=== PATIENT | male | born 1970 | race African-American/Black ===

== ENCOUNTER 2019-09-22 19:44 | Emergency (ER) | payer OTHER, SELFPAY ==
--- NOTE | ~2019-09-22 | XR_ITS ---
EXAMINATION: XR knee RT min 4V DATE: 09/22/2019 20:02 INDICATION: Medial right knee pain and swelling post injury with palpable pop TECHNIQUE: Anteroposterior, 2 oblique and crosstable lateral views of the right knee were obtained COMPARISON: None. FINDINGS: Alignment is normal. No fracture. Spaces appear normal. No joint effusion/layering lipohemarthrosis. Patellar soft tissue swelling. IMPRESSION: 1. No right knee joint effusion or osseous abnormality. Reviewed, dictated and finalized at location A. ET ANALYST
[2019-09-22 19:45] VITALS: BP 101/68; PULSE 60; RESP 22; TEMP 36.8; O2SAT 100
--- NOTE | 2019-09-22 19:53 | PC.NURSE ---
pt to xray via w/c
--- NOTE | 2019-09-22 20:11 | ED.LOWEXIN ---
HPI - Extremity Injury (Lower) General Chief Complaint: Extremity Injury, Lower Stated Complaint: R knee pain Time Seen by Provider: 09/22/19 19:49 Source: patient Mode of arrival: ambulatory Limitations: no limitations History of Present Illness HPI Narrative: A 49 y/o male pt presents to the ED, with c/o rt knee pain since Saturday afternoon (5 days ago). Pt states he was kneeling on his rt knee when he felt a pop. He has since been experiencing pain above and medial to his rt knee joint. Pt states the pain is worse when bending his knee. Pt denies any numbness or tingling to extremities and denies a fever. He states that applied ice with no relief. MD complaint: knee injury (rt) Onset (ago): day(s) (5) Injury: Right: knee Exacerbating factors: movement (bending rt knee) Associated symptoms: snap/pop sensation and other (pain when bending) Treatments prior to arrival: cold therapy Related Data Allergies Allergy/AdvReac Type Severity Reaction Status Date / Time No Known Allergies Allergy Unverified 11/15/15 23:06 Review of Systems Review of Systems: All systems reviewed & are unremarkable except as noted in HPI and below Constitutional: Constitutional: Denies fever(s) Musculoskeletal: Musculoskeletal: Reports arthralgias (rt knee) and Reports limited range of motion (increased pain when bending rt knee) Neurologic: Denies numbness and Denies tingling PMFSH Past Medical History Medical History (Updated 09/22/19 @ 20:27 by Jorge A Felton DO) No significant past medical history Surgical History Surgical History (Updated 09/22/19 @ 20:22 by Angelita DuttonJumio) No significant past surgical history Social History Social History (Updated 09/22/19 @ 20:23 by Angelita DuttonJumio) Smoking status: Smoker, status unknown Occupation/Education: other Additional occupation/education comments: self-employed Exam Narrative: Exam Narrative: APPEARANCE: No acute distress, nontoxic, resting in bed Eyes: EOMI HEENT: Normocephalic, atraumatic, RESPIRATORY: No respiratory distress MUSCULOSKELETAl: Tender to palpation over right medial knee, no tenderness of the anterior lateral posterior knee, pain with flexion greater than 45 degrees, no tenderness of the right ankle or hip, dorsalis pedis pulse 2+, neurovascular intact NEURO: Awake and alert. Following commands, speech normal, no focal deficits SKIN:: Warm, dry. Normal Color no rash or lesions xtremity injury Course Course Emergency Course: Discussed with patient results of workup and diagnosis. Discussed need for follow-up with primary care, proper use of medication, and reasons to return to the emergency department. Patient understands and agrees to current treatment plan Vital Signs Vital signs: Vital Signs Temperature 98.2 F 09/22/19 19:45 Pulse Rate 60 09/22/19 19:45 Respiratory Rate 22 H 09/22/19 19:45 Blood Pressure 101/68 09/22/19 19:45 Pulse Oximetry 100 09/22/19 19:45 Temperature 98.2 F 09/22/19 19:45 Pulse Rate 60 09/22/19 19:45 Respiratory Rate 22 H 09/22/19 19:45 Blood Pressure 101/68 09/22/19 19:45 Pulse Oximetry 100 09/22/19 19:45 MDM - Extremity Injury (Lower) Imaging Data Radiologist's impression: ITS Impressions Knee X-Ray 09/22/19 20:06 IMPRESSION: 1. No right knee joint effusion or osseous abnormality. Discharge Plan Discharge Clinical Impression: Right knee sprain Patient Disposition: Home, Self-Care Condition: Stable Instructions: Antibiotic Form, Knee Sprain (ED) Additional Instructions: Return for increasing pain, numbness or tingling in the extremities or any other symptoms of concern Prescriptions: New ibuprofen [IBU] 600 mg tablet 600 mg PO Q6H PRN (Reason: pain) Qty: 20 RF: 0 Follow-up/Referrals: Jimmy Mcintosh MD [Physician] - (Follow-up in 1 to 2 days for further orthopedic treatment and evaluation) UNKNOWN,DOCTOR [Primary Care P
[2019-09-22] MEDS: IBUPROFEN 600 MG TABLET PO (20:30)
--- NOTE | 2019-09-22 20:32 | PC.NURSE ---
leg immobilizer applied to right leg. distal pulse intact w/ no discoloration.
[2019-09-22 20:46] VITALS: BP 115/71; PULSE 65; RESP 18; TEMP 36.7; O2SAT 100
== END 2019-09-22 20:47 | disposition home or self-care (01) ==
PROVIDERS: Emergency Provider Emergency Medicine
DX: S83.91XA Sprain of unspecified site of right knee, initial encounter (principal); X50.1XXA Overexertion from prolonged static or awkward postures, initial encounter
CPT/HCPCS: 73564; 99283; A9270